=== PATIENT | male | born 1960 | race Caucasian/White ===

== ENCOUNTER 2019-01-29 22:54 | Observation (INO) | payer MEDICARE, OTHER ==
[2019-01-29 23:28] LABS: #Eosinphils 0.1 thou/uL (0.0-0.7); #Lymphocytes 1.4 thou/uL (1.20-3.40); #Monocytes 1.3 thou/uL (0.11-0.59); #Neutrophils 11.4 thou/uL (1.40-6.50); %Basophils 0.3 % (0.0-1.0); %Eosinophils 0.8 % (0.0-10.0); %Lymphocytes 9.7 % (21.0-51.0); %Monocytes 8.9 % (0.0-10.0); %Neutrophils 80.3 % (42.0-75.0); Hemoglobin 13.4 g/dL (14.0-18.0); Mean Corpuscular HGB CONC 32.8 g/dL (32.0-36.0); Mean Corpuscular Hemoglobin 30.3 pg (27.0-31.0); Mean Corpuscular Volume 92.6 fL (78.0-98.0); Mean Platelet Volume 7.4 fL (7.4-10.4); Platelet Count 194 thou/uL (130-400); RBC Distribution Width 13.3 % (11.5-14.5); Red Blood Cell (RBC) Count 4.41 mill/uL (4.70-6.10); White Blood Cell (WBC) Count 14.2 thou/uL (4.8-10.8)
--- NOTE | 2019-01-29 23:38 | RAD ---
RADIOGRAPH CHEST 1 VIEW: DATE: 01/29/2019 TIME: 11:14 PM HISTORY: 58-year-old male status post syncope and dyspnea COMPARISON: none FINDINGS: Lung volumes are very low, with very shallow inspiration. Diffusely prominent interstitial markings a re present, probably because of the hypoinflated lungs with crowding of bronchovascular markings. It is difficult to rule out mild pulmonary interstitial edema. No pneumothorax. No gross consolidatio n. IMPRESSION: Limited study because of hypoinflation of the lungs.
[2019-01-29 23:47] LABS: ALT (SGPT) 22 U/L (8-55); AST (SGOT) 15 U/L (5-34); Albumin 4.1 g/dL (3.5-5.0); Alkaline Phosphatase 75 U/L (40-150); Anion Gap 15 mmol/L (10-20); BUN (Urea Nitrogen) 31 mg/dL (8.4-25.7); Bilirubin, Total 0.3 mg/dL (0.2-1.2); Calc. Creatinine Clearance 0 mL/min (70-130); Calcium 9.2 mg/dL (7.8-10.44); Carbon Dioxide 18 mmol/L (22-29); Chloride 110 mmol/L (98-107); Estimated GFR-MDRD 48; Globulin 2.1 g/dL (2.4-3.5); Glucose 122 mg/dL (70-105); Potassium 3.7 mmol/L (3.5-5.1); Protein, Total 6.2 g/dL (6.0-8.3); Sodium 139 mmol/L (136-145)
[2019-01-30] MEDS ORDERED: Ondansetron ODT 4 MG TAB SL PRN (01:46)
[2019-01-30] MEDS ORDERED: Ondansetron PF 4 MG/2 ML Vial IVP PRN (01:46)
[2019-01-30] MEDS ORDERED: Acetaminophen 325 MG TAB PO PRN ×2 (01:46→02:19)
[2019-01-30 01:47] VITALS: BMI 33.7
[2019-01-30] MEDS ORDERED: Lactated Ringer's 1,000 ML IV SCH ×2 (02:00→04:15)
[2019-01-30] MEDS ORDERED: Dextrose 5% in Water 1,000 ML IV PRN (02:19)
[2019-01-30] MEDS ORDERED: HumaLOG 300 UNITS/3 ML VIAL SC PRN ×2 (02:19)
[2019-01-30] MEDS ORDERED: Bisacodyl 10 MG SUPP PR PRN (02:19)
[2019-01-30] MEDS ORDERED: Senokot S 8.6-50 MG TAB PO PRN (02:19)
[2019-01-30] MEDS ORDERED: Dextrose 50% Abboject 50 ML SYRINGE SLOW IVP PRN (02:19)
[2019-01-30] MEDS ORDERED: Guaifenesin DM 100-10/5 ML UDCUP PO PRN (02:19)
[2019-01-30] MEDS ORDERED: OLANZapine 2.5 MG TAB PO SCH (02:27)
[2019-01-30 02:38] LABS: #Eosinphils 0.1 thou/uL (0.0-0.7); #Lymphocytes 1.5 thou/uL (1.20-3.40); #Monocytes 1.3 thou/uL (0.11-0.59); #Neutrophils 10.8 thou/uL (1.40-6.50); %Basophils 0.3 % (0.0-1.0); %Eosinophils 0.7 % (0.0-10.0); %Lymphocytes 11.2 % (21.0-51.0); %Monocytes 9.3 % (0.0-10.0); %Neutrophils 78.4 % (42.0-75.0); Mean Corpuscular HGB CONC 32.9 g/dL (32.0-36.0); Mean Corpuscular Hemoglobin 31.4 pg (27.0-31.0); Mean Corpuscular Volume 95.4 fL (78.0-98.0); Mean Platelet Volume 7.4 fL (7.4-10.4); Platelet Count 201 thou/uL (130-400); RBC Distribution Width 13.4 % (11.5-14.5); Red Blood Cell (RBC) Count 4.14 mill/uL (4.70-6.10); White Blood Cell (WBC) Count 13.8 thou/uL (4.8-10.8)
[2019-01-30] MEDS ORDERED: Aspirin 325 mg Enteric Coated Tablet PO SCH ×2 (02:45→09:00)
[2019-01-30 02:53] LABS: Anion Gap 14 mmol/L (10-20); BUN (Urea Nitrogen) 28 mg/dL (8.4-25.7); Calc. Creatinine Clearance 99 mL/min (70-130); Calcium 8.6 mg/dL (7.8-10.44); Carbon Dioxide 18 mmol/L (22-29); Cardiac Risk 1.7 (Less than 4.5); Chloride 110 mmol/L (98-107); Cholesterol 136 mg/dl (< 200 Desired); Estimated GFR-MDRD 66; Glucose 109 mg/dL (70-105); HDL Cholesterol 80 mg/dL (>60 Neg Risk); LDL Cholesterol, Calculated 46 mg/dL; Potassium 3.7 mmol/L (3.5-5.1); Sodium 138 mmol/L (136-145); Triglycerides 52 mg/dL (Less than 150)
--- NOTE | 2019-01-30 06:09 | HP ---
REASON FOR ADMISSION: Syncope, moderate dehydration, and acute kidney injury. HISTORY OF PRESENTING ILLNESS: The patient had come to see [employer]. He was coming down the steps after the game, and his legs gave out. He and his father both mentioned that he did not lose consciousness but was feeling weak. Bystanders held him, so he did not fall to the ground. In view of this, EMS was summoned and the patient was brought here to the emergency room. Currently, has no complaints of chest pain, shortness of breath, palpitation, PND, or orthopnea. He is from [facility]. He has not had any prior cardiac workup. His EKG reveals bifascicular block. PAST MEDICAL AND SURGICAL HISTORY: History of schizophrenia; depression; diabetes mellitus, type 2; hypertension; obesity; dyslipidemia; and hernia repair. CURRENT MEDICATIONS: He takes, 1. Aspirin 81 mg daily. 2. Atorvastatin 10 mg p.o. at bedtime. 3. Budesonide 9 mg p.o. q.a.m. for chronic diarrhea. 4. Celecoxib 200 mg p.o. daily. 5. Clozapine 12.5 mg p.o. daily for schizophrenia. 6. Fluoxetine 40 mg p.o. daily. 7. Cogentin 1 mg daily. 8. Lisinopril 5 mg daily. 9. Gabapentin 600 mg p.o. three times daily. 10. Glipizide 5 mg p.o. daily. ALLERGIES: NO KNOWN DRUG ALLERGIES. PERSONAL HISTORY: Drinks 1 to 2 beers. Does not abuse drugs or smoke. Lives with his father. FAMILY HISTORY: Father is here at bedside, and he says he is healthy. Mother in her 80s, she had dementia. CODE STATUS: Full. Power of estate planning attorney is his father. REVIEW OF SYSTEMS: CONSTITUTIONAL: Negative for weight loss or gain, ability to conduct usual activities. SKIN: Negative for rash, itching. EYES: Negative for double vision, pain. ENT/MOUTH: Negative for nose bleeding, neck stiffness, pain, tenderness. CARDIOVASCULAR: Negative for palpitations, dyspnea on exertion, orthopnea. RESPIRATORY: Negative for shortness of breath, wheezing, cough, hemoptysis, fever or night sweats. GASTROINTESTINAL: Negative for poor appetite, abdominal pain, heartburn, nausea , vomiting, constipation, or diarrhea. GENITOURINARY: Negative for urgency, frequency, dysuria, nocturia. MUSCULOSKELETAL: Negative for pain, swelling. NEUROLOGIC/PSYCHIATRIC: Negative for anxiety, depression. ALLERGY/IMMUNOLOGIC: Negative for skin rash, bleeding tendency. PHYSICAL EXAMINATION: GENERAL: The patient is a 58-year-old male, who is currently not in any acute distress. VITAL SIGNS: Blood pressure 114/72, pulse 110 per minute, respiratory rate 22 per minute, temperature 98 degrees Fahrenheit, and saturating 96% on room air. NECK: Supple. No elevated JVD. HEENT: Eyes; extraocular muscles intact. Pupils reacting to light. Oral cavity, mucous membranes are dry. No exudates or congestion. CARDIOVASCULAR SYSTEM: S1 and S2 heard. Regular rhythm. RESPIRATORY: Air entry 2+ bilateral. Scattered rhonchi plus, no rales or wheezes. ABDOMEN: Soft. Bowel sounds heard. No tenderness, rigidity, or guarding. EXTREMITIES: No peripheral edema or calf tenderness. VASCULAR SYSTEM: Peripheral pulses were 1+ bilateral. No ischemic ulcerations or gangrene. CENTRAL NERVOUS SYSTEM: No gross focal deficits noted. The patient is alert, awake, and oriented well. PSYCHIATRIC SYSTEM: The patient has a flat affect. No hallucinations or delusions. LABORATORY DATA: EKG done shows bifascicular block with sinus tach at 105 beats per minute. There are signs of LVH seen. White count of 14, H and H 13 and 40, platelet count is 194 with 80% neutrophils, MCV is 92. D-dimer 1.67. Serum bicarb is 18, BUN 31, creatinine 1.4, and serum glucose 122. Troponin x2 negative. Albumin is 4.1. Total cholesterol 136, triglycerides 52, and LDL 46. DIAGNOSTIC DATA: Chest x-ray done shows no acute infiltrate. This is a poor inspiratory film. CLINICAL IMPRESSION AND PLAN: The patient will be under observation on telemetry for an episode of near-syncope. His EKG though shows bifascicular block with patient not having any prior history of cardiac issues. He has never had any cardiac workup in the past. He also appears to be dehydrated with acute kidney injury as well. He will be gently hydrated with lactated Ringer's at 75 mL per hour. Pharmacy does not carry his clozapine, which he takes at bedtime. He will be given one dose of Zyprexa 2.5 mg, nearest equivalent for his clozapine. We will continue gabapentin, Prozac, budesonide, and Lipitor as before. He will be on a full-dose aspirin for now. We will obtain consultation with Dr. Madsen, who is on-call for Cardiology. Echo with 2D Doppler for LV function and a nuclear stress test for completion. He will be kept n.p.o. after midnight. We will continue to closely monitor him on telemetry. The patient does not appear to have any bradycardia or AV margaret block at present, although he has bifascicular block. Job ID: [id number] [facility]
--- NOTE | 2019-01-30 08:13 | CT ---
PRELIMINARY REPORT/[facility]/EMERGENCY AFTER HOURS PROCEDURE: EXAM: CT Angiography Chest With Contrast EXAM DATE/TIME: 01/30/2019 1:19 AM CLINICAL HISTORY: 58 years old, male; Abdominal pain; Acute; Patient HX: No previous. . . Er 16. . . 58 yo m presenting to er with cc of syncope. Patient was walking out of the [employer] game when he suddenly felt SOB and like he needed to "take a break. " he states that he did not feel dizzy. The patient was eased down and caught by someone walking alongside him. He did not hit his head. He was not out for long. He sta [place] he often does get SOB - he recently started an exercise program and has felt like this during his exercises. He was not confused afterwards and no shaking occurred. He denies any chest pain or palpitations. He denies any vision changes or feeling weak. Patient denies any HX of cardiac issues. He admits to having a smoking history but quit many years ago. TECHNIQUE: Imaging protocol: Computed tomographic angiography of the chest with intravenous contrast. 3D rendering: MIP reconstructed images were created and reviewed. COMPARISON: No relevant prior studies available. FINDINGS: Pulmonary arteries: Normal. No pulmonary emboli. Aorta: Unremarkable. No aortic aneurysm. No aortic dissection. Lungs: Mild groundglass opacities in the right upper lobe. Dependent subsegmental pulmonary atelectas is. Pleural space: Unremarkable. No pneumothorax. No pleural effusion. Heart: Unremarkable. No cardiomegaly. No pericardial effusion. Lymph nodes: Unremarkable. No enlarged lymph nodes. Bones/joints: Unremarkable. No acute fracture. Soft tissues: Unremarkable. IMPRESSION: 1. No acute vascular abnormality. 2. Mild groundglass opacities in the right upper lobe. CLINICAL HISTORY: 58 years old, male; Abdominal pain; Acute; Patient HX: No previous. . . Er 16. . . 58 yo m presenting to er with cc of syncope. Patient was walking out of the [employer] game when he suddenly felt SOB and like he needed to "take a break. " he states that he did not feel dizzy. The patient was eased down and caught by someone walking alongside him. He did not hit his head. He was not out for long. He states he often does get SOB - he recently started an exercise program and has felt like this during his exercises. He was not confused afterwards and no shaking occurred. He denies any chest pain or palpitations. He denies any vision changes or feeling weak. Patient denies any HX of cardiac issues. He admits to having a smoking history but quit many years ago. TECHNIQUE: Imaging protocol: Computed tomographic angiography images of the abdomen with intravenous contrast material. 3D rendering: MIP reconstructed images were created and reviewed. COMPARISON: No relevant prior studies available. FINDINGS: VASCULATURE: Aorta: No aortic aneurysm. No aortic dissection. Celiac trunk and mesenteric arteries: No occlusion or significant stenosis. Renal arteries: No occlusion or significant stenosis. ABDOMEN: Liver: Normal. No mass. Gallbladder and bile ducts: Normal. No calcified stones. No ductal dilation. Pancreas: Normal. No ductal dilation. Spleen: Normal. No splenomegaly. Adrenals: There some mild stranding adjacent to the slightly thickened left adrenal gland, correlate for adrenalitis. Kidneys and ureters: Normal. No hydronephrosis. Stomach and bowel: Gastric wall lipomatosis. Proximal small bowel wall thickening, correlate for infectious or inflammatory enteritis. Intraperitoneal space: Unremarkable. No free air. No significant fluid collection. Bones/joints: Grade one L4-5 anterolisthesis. Multilevel moderate lumbar spondylosis and stenosis. Soft tissues: Unremarkable. Lymph nodes: Unremarkable. No enlarged lymph nodes. IMPRESSION: 1. No acute arterial abnormality. 2. Proximal small bowel wall thickening, correlate for infectious or inflammatory enteritis. 3. Mild stranding adjacent to the slightly thickened left adrenal gland, correlate for adrenalitis. Thank you for allowing us to participate in the care of your patient. Dictated and Authenticated by: Magno Elam MD 01/30/2019 2:12 AM Central Time ([place] & [place]) FINAL REPORT CTA CHEST AND PELVIS WITH 3D VOLUME RENDERING WITH CONTRAST: FINDINGS/IMPRESSION: Final report is in agreement with the above-provided preliminary interpretation. No evidence of acute aortic dissection or aortic aneurysm of the imaged thoracoabdominal aorta. Bilateral ground-glass pulmonary parenchymal alveolar opacities that may be on the basis of an atypic al infectious/inflammatory process. Correlate clinically. Additional details are discussed above.
[2019-01-30] MEDS ORDERED: ADENOSINE 60 MG/20 ML VIAL ONE ×2 (08:53→15:11)
[2019-01-30] MEDS ORDERED: Gabapentin 300 MG CAP PO SCH (09:00)
[2019-01-30] MEDS ORDERED: Famotidine 20 MG TAB PO SCH (09:00)
[2019-01-30] MEDS ORDERED: Lisinopril 5 MG TAB PO SCH (09:00)
[2019-01-30] MEDS ORDERED: Enoxaparin Sodium 40 MG/0.4 ML SYRINGE SC SCH (09:00)
[2019-01-30] MEDS ORDERED: FLUoxetine HCl 20 MG CAP PO SCH (09:00)
[2019-01-30 12:06] VITALS: TEMP 97.5
[2019-01-30] MEDS ORDERED: ISOVUE-370 76%-LOCM 1 ML ONE (12:30)
--- NOTE | 2019-01-30 13:01 | NM ---
EXAM: Nuclear medicine cardiac SPECT with EF and wall motion: HISTORY: Chest pain Protocol: Exam was performed using Lexiscan protocol. The patient is injected with32.6 millicuries of technetium 99m sestamibi intravenously for stress desiree ges. The patient is injected with11.0 millicuries of technetium 99 sestamibi intravenously for resting desiree ges. Multiple SPECT images are performed in the short axis, vertical long axis, and horizontal long axis. FINDINGS: No scan evidence for infarct or ischemia. TID:1.0 LHR:0.35 EDV:84 mL EF:64% Wall motion:Normal IMPRESSION: Unremarkable cardiac SPECT with EF and wall motion.
[2019-01-30 14:17] VITALS: BP 135/85
--- NOTE | 2019-01-30 20:43 | CON ---
DATE OF CONSULTATION: HISTORY: Patient is a 58-year-old gentleman who presented after feeling weak and nearly losing consciousness. The patient has a history of schizophrenia. The patient reports that he has had several episodes in the past where he feels weak and lightheaded. He never loses consciousness. These episodes always occur when he is standing for a prolonged period of time. The patient was at football game yesterday,and walked a long distance. He felt weak and suddenly fell to the ground. The patient never lost consciousness. The patient denies having any chest pain or dyspnea. PAST MEDICAL HISTORY: 1. Diabetes mellitus. 2. Hypertension. 3. Schizophrenia. PAST SURGICAL HISTORY: Hernia repair. ALLERGIES: NO KNOWN DRUG ALLERGIES. SOCIAL HISTORY: Former smoker. FAMILY HISTORY: No strong family history of coronary artery disease. ALLERGIES: NO KNOWN DRUG ALLERGIES. MEDICATIONS: 1. Lisinopril 5 mg daily. 2. Glipizide 5 daily. 3. Celebrex 200 daily. 4. Lipitor 10 daily. 5. Aspirin 81 daily. 6. Prozac 40 daily. 7. Benztropine 2 mg daily. PHYSICAL EXAMINATION: GENERAL: Obese gentleman, in no acute distress. VITAL SIGNS: Blood pressure 126/72. NECK: No jugular venous distention. LUNGS: Clear to auscultation. HEART: Regular rate and rhythm. Normal S1, S2. No murmurs. ABDOMEN: Distended. EXTREMITIES: Showed no edema. VASCULAR: Radial pulses 2+. LABORATORY DATA: Sodium was 138, potassium 3.7, chloride 110, bicarbonate 18, BUN 28, creatinine 1.1, glucose 109. Troponin 0.23. White blood cell count 13.8, hemoglobin 13.0, hematocrit 35.0, and platelets are 201. His troponin was 0.021. His EKG revealed normal sinus rhythm, right bundle-branch block, left anterior fascicular block. Nuclear stress test revealed normal left ventricular ejection fraction of 64% with no evidence of ischemia. IMPRESSION: 1. Near syncope. 2. Severe conduction disease, right bundle branch block/left anterior fascicular block. 3. Diabetes mellitus. 4. Hypertension. 5. Schizophrenia. This gentleman presents with recurrent near syncope. This most likely is due to orthostasis and dehydration. Would recommend discontinuing his lisinopril. We will check orthostatic blood pressures. The patient's echocardiogram is pending. The patient should have a 30-day monitor placed and follow up with Cardiology. Job ID: [id number] [facility]TD[facility]
[2019-01-30] MEDS ORDERED: Atorvastatin Calcium 20 MG TAB PO SCH (21:00)
--- NOTE | 2019-02-01 03:03 | DIS ---
DATE OF ADMISSION: 01/30/2019 DATE OF DISCHARGE: 01/31/2019 DISCHARGE DIAGNOSES: 1. Near syncope. 2. Dehydration. 3. Acute kidney injury. 4. Bifascicular block. 5. Elevated D-dimer. 6. History of schizophrenia. 7. Diabetes mellitus. 8. Hypertension. 9. Obesity. 10. Dyslipidemia. HISTORY OF PRESENT ILLNESS: This patient is a 58-year-old male who was at the [employer] football game, was walking stairs, had an episode of generalized weakness and lightheadedness with apparent near syncopal episode. The patient was subsequently transported by ambulance to the emergency department where he had a bifascicular block noted on his EKG and his labs showed white count of 14,000, BUN of 31, and creatinine of 1.4. Negative troponins. Chest x-ray was clear. He did have a slightly elevated D-dimer. Therefore, a CT of the chest was obtained with dissection protocol, which showed no evidence of dissection or pulmonary emboli. The patient subsequently was admitted to the hospital where he received fluid hydration and had improvement of his lab values with white count initially coming down within about 4 hours to 13.8. He had improvement of his creatinine to 1.3 and his GFR at 66. His vital signs remained stable. He was afebrile and he felt completely back to normal. He did undergo a nuclear medicine stress test, which was negative. He had an echocardiogram which showed generally poor study due to poor windows, but EF appeared normal and heart otherwise appeared structurally normal. He was seen in consultation by Cardiology because of his symptoms in the left anterior fascicular block. I discussed the case with hair clipper power, Dr. Madsen, who felt the patient likely had symptomatic mild dehydration as well. He obtained a history of the patient had some prior similar symptoms and he recommended an outpatient arrangement for a 30-day panel monitor, but felt the patient was stable for discharge. Of note, the patient did have some nonspecific findings on his CT abdomen which revealed some nonspecific inflammation of the proximal bowel wall and some mild stranding adjacent to the slightly thickened left adrenal gland. However, this patient had no symptoms referable to these findings and no physical exam findings to support any issues there. Therefore, these were felt to be not warranting further investigation. Once the patient was feeling completely back to normal, he is eating and drinking, and was ambulating, he was felt to be stable for discharge. PHYSICAL EXAMINATION: On the day of discharge, VITAL SIGNS: Temperature was 97.5, pulse 84, respirations 16, O2 saturation 96% on room air. His blood pressure was 133/86 supine, 135/85 sitting, and 126/76 standing. GENERAL: He was awake and alert. HEART: Regular rate and rhythm without murmurs, gallops, or rubs. LUNGS: Clear bilaterally with no wheezes or rales. He had good air exchange throughout. ABDOMEN: Soft, nontender, and nondistended. Positive bowel sounds. No masses. No organomegaly. EXTREMITIES: No cyanosis, clubbing, or edema. DISPOSITION: The patient is discharged to home. He is to have a regular diet. His activity level is as tolerated. FOLLOWUP: He is to follow up with his PCP in 3 days. He is to continue with his usual home medications. Please see his discharge medication list for further details. He can follow up with the hospital should he have any problems prior to that time. Job ID: [id number]
--- NOTE | 2019-02-08 01:27 | EKG ---
Test Reason : NEAR SYNCOPE Blood Pressure : / mmHG Vent. Rate : 105 BPM Atrial Rate : 105 BPM P-R Int : 148 ms QRS Dur : 130 ms QT Int : 398 ms P-R-T Axes : 038 -54 110 degrees QTc Int : 526 ms Sinus tachycardia Right bundle branch block Left anterior fascicular block Bifascicular block Left ventricular hypertrophy with repolarization abnormality Cannot rule out Septal infarct , age undetermined Abnormal ECG Confirmed by MANUEL BLACKWOOD ([id number]), editor greeting card MARILYN MIGUEL ([id number]) on 02/08/2019 1:27:02 AM Referred By: Confirmed By:MANUEL BLACKWOOD
== END 2019-01-30 15:39 | disposition home or self-care (01) ==
LOC: ERS 22:54 → 2SE 01-30 00:25
PROVIDERS: ADMIT Internal Medicine; ATTEND Internal Medicine
DX: R55 Syncope and collapse (principal); E86.0 Dehydration; N17.9 Acute kidney failure, unspecified; F20.9 Schizophrenia, unspecified; F32.9 Major depressive disorder, single episode, unspecified; E11.9 Type 2 diabetes mellitus without complications; I10 Essential (primary) hypertension; E78.5 Hyperlipidemia, unspecified; I45.2 Bifascicular block; R79.1 Abnormal coagulation profile; E78.00 Pure hypercholesterolemia, unspecified; E66.9 Obesity, unspecified; Z68.33 Body mass index [BMI] 33.0-33.9, adult; Z79.82 Long term (current) use of aspirin; Z79.84 Long term (current) use of oral hypoglycemic drugs; Z79.899 Other long term (current) drug therapy
CPT/HCPCS: 71045; 71275; 78452; 80048; 80053; 80061; 82962; 84145; 84484 ×3; 85025 ×2; 85379; 93005; 93017; 93306; 96360; 96372; 99285; A9500; G0378 ×2; 36415; 36416; J0153; J1650; Q9966